=== PATIENT | male | born 1985 | race Caucasian/White ===

== ENCOUNTER 2021-07-01 18:30 | Emergency (ER) | payer SELFPAY ==
[~2021-07-01] VITALS: Ht 152.4 cm; Wt 47.6 kg
== END 2021-07-01 20:18 | disposition home or self-care (01) ==
LOC: ED 18:30
DX: S01.111A Laceration without foreign body of right eyelid and periocular area, initial encounter (principal); W18.39XA Other fall on same level, initial encounter; Y93.89 Activity, other specified; Y92.89 Other specified places as the place of occurrence of the external cause; Y99.8 Other external cause status